=== PATIENT | female | born 1950 | race Caucasian/White ===

== ENCOUNTER 2017-09-08 11:31 | Outpatient (CLI) | payer MEDICARE, OTHER ==
--- NOTE | 2017-09-09 09:43 | Mammography Report ---
DIGITAL SCREENING MAMMOGRAM: 09/08/2017 COMPARISON: 04/17/2014, 06/16/2012, 05/12/2011, 07/16/2009, 06/11/2009, 01/25/2008. TECHNIQUE: Bilateral digital CC, exaggerated CC and MLO projections. FINDINGS: There are scattered fibroglandular densities. Benign calcifications are unchanged compared to prior. No suspicious dominant mass, architectural distortion, skin thickening, or interval change. IMPRESSION: NEGATIVE - BI-RADS CATEGORY 1. SUGGEST ROUTINE FOLLOWUP IN 12 MONTHS. STANDARD QUALIFYING STATEMENTS: 1. This examination was reviewed with the aid of Computer-Aided Detection (CAD). 2. A negative or benign imaging report should not delay biopsy if clinically suspicious findings are present. Consider surgical consultation if warranted. More than 5% of cancers are not identified by imaging. 3. Dense breasts may obscure an underlying neoplasm. TD: 09/09/2017 09:43
== END 2017-09-08 11:32 | disposition home or self-care (01) ==
LOC: DI.S 11:31
PROVIDERS: ATTEND Internal Medicine
DX: Z12.31 Encounter for screening mammogram for malignant neoplasm of breast (principal)
CPT/HCPCS: 77067

== ENCOUNTER 2017-09-15 10:44 | Outpatient (CLI) | payer MEDICARE, OTHER ==
[2017-09-15 17:43] LABS: BASOPHILS # (AUTO) 0.1 10^3/uL (0.0-0.1); BASOPHILS % (AUTO) 1.6 %; EOSINOPHILS # (AUTO) 0.1 10^3/uL (0.0-0.7); EOSINOPHILS % (AUTO) 2.5 %; HGB - HEMOGLOBIN 13.4 g/dL (12.0-16.0); LYMPHOCYTES # (AUTO) 1.6 10^3/uL (1.5-3.5); LYMPHOCYTES % (AUTO) 27.9 %; MEAN CORPUSCULAR HEMOGLOBIN 32.8 pg (27.0-31.0); MEAN CORPUSCULAR HGB CONC 33.3 g/dL (32.0-36.0); MEAN CORPUSCULAR VOLUME 98.5 fL (81.0-99.0); MEAN PLATELET VOLUME 8.3 fL (7.9-10.8); MONOCYTES # (AUTO) 0.3 10^3/uL (0.0-1.0); MONOCYTES % (AUTO) 4.4 %; NEUTROPHILS # (AUTO) 3.6 10^3/uL (1.5-6.6); NEUTROPHILS % (AUTO) 63.6 %; PLT - PLATELET COUNT 147 10^3/uL (130-450); RED BLOOD COUNT 4.09 10^6/uL (4.20-5.40); RED CELL DISTRIBUTION WIDTH 12.4 % (12.0-15.0); WHITE BLOOD COUNT 5.7 x10^3/uL (4.8-10.8)
[2017-09-15 18:08] LABS: ALBUMIN 4.6 g/dL (3.2-5.5); ALBUMIN/GLOBULIN RATIO 1.6 (1.0-2.2); ALKALINE PHOSPHATASE 71 IU/L (42-121); ALT ALANINE AMINOTRANSFERASE 20 IU/L (10-60); AST ASPARTATE AMINOTRANSFERASE 23 IU/L (10-42); BILIRUBIN,TOTAL 0.8 mg/dL (0.2-1.0); BUN - BLOOD UREA NITROGEN 22 mg/dL (6-20); CALCIUM 9.2 mg/dL (8.5-10.3); CARBON DIOXIDE - CO2 28 mmol/L (21-32); CHLORIDE 101 mmol/L (101-111); CHOL/HDL RATIO 3.3 (<4.4); CHOLESTEROL 247 mg/dL; CREATININE 0.5 mg/dL (0.4-1.0); GFR - MDRD 123 (>89); GLUCOSE 91 mg/dL (70-100); HDL CHOLESTEROL 75 mg/dL; LDL CHOLESTEROL,CALCULATED 157 mg/dL; LDL/HDL RATIO 2.1 (<4.4); SODIUM 138 mmol/L (135-145); TOTAL PROTEIN 7.5 g/dL (6.7-8.2); VLDL CHOLESTEROL 15 mg/dL
[2017-09-16 13:36] LABS: HEPATITIS C ANTIBODY NON-REACTIVE (NON-REACTIVE)
== END 2017-09-15 10:45 | disposition home or self-care (01) ==
LOC: LAB.F 10:44
PROVIDERS: ATTEND Internal Medicine
DX: Z12.11 Encounter for screening for malignant neoplasm of colon (principal); Z12.12 Encounter for screening for malignant neoplasm of rectum; Z79.899 Other long term (current) drug therapy; K21.9 Gastro-esophageal reflux disease without esophagitis; E78.5 Hyperlipidemia, unspecified; L30.9 Dermatitis, unspecified; L50.9 Urticaria, unspecified; L25.9 Unspecified contact dermatitis, unspecified cause; L21.0 Seborrhea capitis; F32.9 Major depressive disorder, single episode, unspecified; F41.9 Anxiety disorder, unspecified; F34.1 Dysthymic disorder
CPT/HCPCS: 36415; 80053; 80061; 83721; 84443; 85025; 86803

== ENCOUNTER 2020-12-12 10:29 | Outpatient (CLI) | payer MEDICARE, OTHER ==
[2020-12-12 14:46] LABS: BASOPHILS # (AUTO) 0.1 10^3/uL (0.0-0.1); BASOPHILS % (AUTO) 1.1 %; EOSINOPHILS # (AUTO) 0.2 10^3/uL (0.0-0.7); EOSINOPHILS % (AUTO) 2.4 %; HCT - HEMATOCRIT 38.7 % (37.0-47.0); HGB - HEMOGLOBIN 12.5 g/dL (12.0-16.0); LYMPHOCYTES % (AUTO) 31.1 %; MEAN CORPUSCULAR HEMOGLOBIN 32.4 pg (27.0-31.0); MEAN CORPUSCULAR HGB CONC 32.3 g/dL (32.0-36.0); MEAN CORPUSCULAR VOLUME 100.3 fL (81.0-99.0); MEAN PLATELET VOLUME 10.5 fL (7.9-10.8); MONOCYTES # (AUTO) 0.4 10^3/uL (0.0-1.0); MONOCYTES % (AUTO) 6.4 %; NEUTROPHILS # (AUTO) 3.7 10^3/uL (1.5-6.6); NEUTROPHILS % (AUTO) 58.5 %; PLT - PLATELET COUNT 142 10^3/uL (130-450); RED BLOOD COUNT 3.86 10^6/uL (4.20-5.40); RED CELL DISTRIBUTION WIDTH 12.9 % (12.0-15.0); WHITE BLOOD COUNT 6.4 x10^3/uL (4.8-10.8)
[2020-12-12 15:16] LABS: THYROID STIMULATING HORMONE 0.5 uIU/mL (0.34-5.60)
[2020-12-12 15:17] LABS: ALBUMIN 4.2 g/dL (3.2-5.5); ALBUMIN/GLOBULIN RATIO 1.4 (1.0-2.2); ALKALINE PHOSPHATASE 75 IU/L (42-121); ALT ALANINE AMINOTRANSFERASE 21 IU/L (10-60); AST ASPARTATE AMINOTRANSFERASE 23 IU/L (10-42); BILIRUBIN,TOTAL 1.1 mg/dL (0.2-1.0); BUN - BLOOD UREA NITROGEN 28 mg/dL (6-20); CALCIUM 9.1 mg/dL (8.5-10.3); CARBON DIOXIDE - CO2 27 mmol/L (21-32); CHLORIDE 102 mmol/L (101-111); CHOL/HDL RATIO 3.3 (<4.4); CHOLESTEROL 211 mg/dL; CREATININE 0.6 mg/dL (0.4-1.0); GFR - MDRD 99 (>89); GLUCOSE 88 mg/dL (70-100); HDL CHOLESTEROL 64 mg/dL; LDL CHOLESTEROL,CALCULATED 132 mg/dL; LDL/HDL RATIO 2.1 (<4.4); POTASSIUM 3.9 mmol/L (3.5-5.0); SODIUM 138 mmol/L (135-145); TOTAL PROTEIN 7.3 g/dL (6.7-8.2); TRIGLYCERIDES 76 mg/dL; VLDL CHOLESTEROL 15 mg/dL
== END 2020-12-12 10:30 | disposition home or self-care (01) ==
LOC: LAB.S 10:29
PROVIDERS: ATTEND Internal Medicine
DX: R29.6 Repeated falls (principal); L65.9 Nonscarring hair loss, unspecified; K21.9 Gastro-esophageal reflux disease without esophagitis; E78.5 Hyperlipidemia, unspecified; F41.9 Anxiety disorder, unspecified; Z13.6 Encounter for screening for cardiovascular disorders; Z79.899 Other long term (current) drug therapy
CPT/HCPCS: 36415; 80053; 80061; 82607; 83721; 84443; 85025

== ENCOUNTER 2021-03-10 13:01 | Outpatient (CLI) | payer MEDICARE, OTHER ==
--- NOTE | 2021-03-10 16:48 | MRI Report ---
PROCEDURE: Brain W/O INDICATIONS: FREQUENT FALLS, HIST OF CYSTS AND MASSES TECHNIQUE: Noncontrast axial T1 spin echo, axial T2 fast spin echo, sagittal and axial FLAIR, coronal T2 fast sp in echo, axial gradient echo, axial diffusion and ADC through the brain. COMPARISON: MRI dated 10/10/2015. CT dated 03/02/2016. FINDINGS: Image quality: Degraded by metallic artifact. CSF Spaces: Basal cisterns are patent. No change in arachnoid cyst within the posterior aspect of t he sylvian fissure on the right. Ventricles are normal in size and shape. Brain: No acute intracranial hemorrhage. There are a few small foci of low-grade echo signal intensi ty within the bilateral basal ganglia. Previously seen low T2 intensity dural based mass involving th e right paramedian planum sphenoidale and extending posteriorly into the suprasellar cistern is not s ignificantly changed. No change in ovoid high FLAIR signal intensity focus within the right posterior thalamus. Mild diffuse cerebral volume loss. Mild degree of patchy high FLAIR signal within the jael ventricular and subcortical white matter, as before. Nieto/white matter interface is normal. Brainste m appears normal. Diffusion-weighted images demonstrate no acute ischemic insult. No chronic ischem ic insults. Normal intravascular flow voids are present. Skull and face: Calvarium has normal marrow signal. Orbits appear normal. Sinuses: Sinuses and mastoids are clear. IMPRESSION: 1. Mild volume loss and small vessel ischemic disease. 2. No acute process. No recent infarct. 3. No significant change in presumed meningioma involving the right planum sphenoidale and suprasella r cistern. 4. No change in right sylvian fissure arachnoid cyst. 5. No change in high FLAIR signal intensity focus within the right posterior thalamus, consistent wit h benign etiology. Reviewed by: Destiny Henry MD on 03/10/2021 4:46 PM PDT Approved by: Destiny Henry MD on 03/10/2021 4:46 PM PDT Station ID: [id number]
== END 2021-03-10 13:02 | disposition home or self-care (01) ==
LOC: DI 13:01
PROVIDERS: ATTEND Internal Medicine
DX: I67.2 Cerebral atherosclerosis (principal); G93.0 Cerebral cysts; R29.6 Repeated falls

== ENCOUNTER 2022-09-30 15:03 | Outpatient (CLI) | payer MEDICARE, OTHER | END 2022-09-30 15:04 | disposition short-term general hospital (02) | LOC: EMS 15:03 | DX: R40.4 Transient alteration of awareness (principal); R41.0 Disorientation, unspecified; R10.12 Left upper quadrant pain; R10.32 Left lower quadrant pain; R46.89 Other symptoms and signs involving appearance and behavior; Z78.1 Physical restraint status | CPT/HCPCS: A0425; A0427 ==

== ENCOUNTER 2023-05-19 11:24 | Outpatient (CLI) | payer MEDICARE, OTHER ==
--- NOTE | 2023-05-19 12:57 | XRAY Report ---
PROCEDURE: Hip w/Pelvis 2-3V LT INDICATIONS: L HIP PAIN TECHNIQUE: AP pelvis with lateral view(s) of the left hip(s). COMPARISON: None. FINDINGS: Bones: No fractures or dislocations. No suspicious bony lesions. Severe left and moderate to susannah re right joint space narrowing sclerosis is present. Periventricular osteophytes are present without erosions. Soft tissues: No suspicious soft tissue calcifications or masses. 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
== END 2023-05-19 11:25 | disposition home or self-care (01) ==
LOC: DI.S 11:24
PROVIDERS: ATTEND Internal Medicine
DX: M16.0 Bilateral primary osteoarthritis of hip (principal)